=== PATIENT | female | born 1955 | race Caucasian/White ===

== ENCOUNTER → 2020-08-15 15:00 | Outpatient (BNVA) | payer MEDICARE, SELFPAY | PROVIDERS: Family Provider Internal Medicine; Referring Provider Internal Medicine; Visit Provider Nurse Practitioner | DX: G20 Parkinson's disease (principal) | CPT/HCPCS: 99204 ==

== ENCOUNTER 2020-09-17 07:05 | Outpatient (CLI) | payer MEDICARE, SELFPAY ==
--- NOTE | 2020-09-17 07:14 | ECG_ITS ---
[facility] Test Date: 2020-09-17 Pat Name: Janeth Germain Department: Room: Gender: Female [employer] Supervisor: : 1955 Requested By: eWndy Bryant Order Number: [id number] Vesta MD: Wendy Bryant M.D. Interpretive Statements NAME OF STUDY: LEXISCAN SESTAMIBI STRESS TEST INDICATION: CAD PROCEDURE: At the baseline, the blood pressure was 131/79 mmHg, oxygen saturation 98% with a heart rate of 63 bpm. The electrocardiogram showed sinus bradycardia, normal axis with possible old anteroseptal infarct. Nonspecific T wave abnormality. The Lexiscan was infused over a period of 20 seconds. A total of 0.4 milligrams of Lexiscan was infused. The stress phase was continued for a total of 5 minutes. Heart rate at the end of the stress phase was 64 bpm, oxygen saturation 95% with a blood pressure of 121/66 mmHg. The EKG at the peak infusion revealed sinus rhythm with no significant ST-T wave changes. Sestamibi was injected 20 seconds after the Lexiscan infusion. Blood pressure at the end of the recovery phase was 141/80 mmHg, oxygen saturation 95% with a heart rate of 60 beats per minute. CONCLUSION: 1. No significant EKG changes with the LexiScan infusion. 2. No LexiScan induced chest pain or cardiac arrhythmia. 3. Normal blood pressure and heart rate response. 4. Sestamibi/sestamibi perfusion scan pending; see separate report. Electronically Signed On 09-18-2020 12:46:45 CDT by Wendy Bryant M.D. [id number]
--- NOTE | 2020-09-17 07:14 | NMCV_ITS ---
NM kaylee perf SPECT r/s* [id number] Janeth Germain Age: 65 Gender: F : 1955 Exam Date: 09/17/2020 08:20 Ordering Phys: Wendy Bryant MD ([email or web address]) Technologist: LINNETTE Kent Exam Location: [facility] Indications: CAD STRESS TEST Please see separate stress test report in [facility] for full findings IMAGE PROTOCOL Rest/Stress 1 Lexiscan Day Radiopharmaceutical Dose (mCi) Administration Site Administered by Rest: Tc-99m 10.9 IV LINNETTE Kent Sestamibi Stress:Tc-99m 32.9 IV LINNETTE Kent Sestamibi Rest: 17-Sep-2020 60 Discovery 630 Stress: 17-Sep-2020 45 Discovery 630 0.4mg Lexiscan. Images obtained in supine and prone position. SPECT RESULTS Technical Quality: Good Raw Data Analysis: Subdiaphragmatic activity Image Corrections: No attenuation or motion correction applied Summed Stress Score: 2 Summed Rest Score: 10 Summed Difference Score: 0 PERFUSION FINDINGS Medium size perfusion abnormality of basal to mid anterior and basal to mid anteroseptal, apical lateral and apical wall on rest images with improved tracer uptake in anterior anteroseptal wall on stress images. This is suggestive of attenuation artifact. FUNCTIONAL RESULTS (calculated via Gated SPECT) Stress Image LV EF (%): 56 Stress EDV (mL):99 TID: 1.17 Stress ESV (mL):44 FUNCTIONAL FINDINGS: The left ventricle is normal in size. Transient Ischemia Dilatation of 1.2. There is normal left ventricular systolic function. The left ventricular ejection fraction is normal with a value of 56%. Normal end-diastolic and end-systolic volumes. IMPRESSIONS 1. Myocardial perfusion imaging is normal. Attenuation artifact noted in anteroseptal and anterior teresa. 2. Overall left ventricular systolic function is normal without regional wall motion abnormalities. 3. The left ventricular ejection fraction is normal with a value of 56%. 4. Transient Ischemia Dilatation mildly elevated 1.2. This could represent subendocardial ischemia or hypertensive response. 5. No coronary ischemia based on this study. Wendy Bryant MD (Electronically Signed) Final Date: 18 September 2020 12:55 S
--- NOTE | 2020-09-17 07:17 | USCV_ITS ---
Marcellus Janeth Age: 65 Gender: F : 1955 Exam Date: 09/17/2020 07:47 Ordering Phys: Wendy Bryant MD ([email or web address]) Technologist: Mary Beth Dumont Exam Location: [facility] Indication: CHEST PAIN 4 VESSE CABG WITH STENTS BP: / HR: 62 Rhythm: Sinus Technical Quality: Adequate MEASUREMENTS (Male / Female) Normal Values 2D ECHO LV Diastolic Diameter PLAX 5.0 cm 4.2 - 5.9 / 3.9 - 5.3 cm LV Systolic Diameter PLAX 3.7 cm LV Chamber Size 4.0 cm IVS Diastolic Thickness 0.8 cm 0.6 - 1.0 / 0.6 - 0.9 cm IVS Systolic Thickness 1.0 cm LVPW Diastolic Thickness 1.3 cm 0.6 - 1.0 / 0.6 - 0.9 cm LVPW Systolic Thickness 1.1 cm RV Chamber Size 2.8 cm LVOT Diameter 3.0 cm LV Ejection Fraction 2D Teich 51.1 % LV Ejection Fraction MOD 2C 66.5 % LV Ejection Fraction 2C AL 66.0 % LA Diameter 3.6 cm LA Width 3.0 cm LA Height 4.1 cm RA Width 3.0 cm RA Height 3.9 cm Aorta at Sinotubular Diameter 2.0 cm M-MODE LV Diastolic Diameter MM 5.3 cm 4.2 - 5.9 / 3.9 - 5.3 cm LV Systolic Diameter MM 3.5 cm LV Ejection Fraction MM Teich 60.9 % IVS Diastolic Thickness MM 0.6 cm 0.6 - 1.0 / 0.6 - 0.9 cm IVS Systolic Thickness MM 1.3 cm LVPW Diastolic Thickness MM 1.0 cm 0.6 - 1.0 / 0.6 - 0.9 cm LVPW Systolic Thickness MM 1.5 cm RV Diastolic Diameter MM 1.9 cm Aortic Annulus Diameter 3.9 cm LA Ao Ratio MM 0.9 MV E Point Septal Separation 0.9 cm DOPPLER AV Peak Velocity 137.0 cm/s LVOT Peak Velocity 87.0 cm/s AV Area Cont Eq vti 4.7 cm squared AV Area Cont Eq pk 4.6 cm squared MV Area PHT 5.0 cm squared Mitral E to A Ratio 0.9 MV E' Velocity 52.0 cm/s Mitral E to MV E' Ratio 8.8 Mitral E to LV E' Lateral Ratio 9.4 Mitral E to LV E' Septal Ratio 8.4 TR Peak Velocity 151.3 cm/s TR Peak Gradient 9.2 mmHg TR Mean Velocity 112.3 cm/s TR Mean Gradient 5.6 mmHg TR Velocity Time Integral 39.9 cm TV Peak E Velocity 59.0 cm/s Right Atrial Pressure 3.0 mmHg Pulmonary Artery Systolic Pressu 12.2 mmHg PV Peak Velocity 109.3 cm/s RV Acceleration Time 0.1 s RV Ejection Time 0.4 s RV AcT/ET 0.3 FINDINGS Left Ventricle Normal left ventricular cavity size. Normal left ventricular wall thickness. Low normal left ventricular systolic function. Left ventricular ejection fraction is estimated at 50-55%. There is septal hypokinesis. Abnormal (paradoxical) septal motion consistent with postoperative status. Normal diastolic function. Right Ventricle Normal right ventricular size and systolic function, RVSP 12.2 mmHg. Right Atrium Normal right atrial size. Left Atrium Normal left atrial size. Mitral Valve Mildly thickened and calcified mitral valve. There is bowing of both mitral valve leaflets without significant prolapse. No mitral valve stenosis. Trace mitral valve regurgitation. Aortic Valve Aortic valve not well visualized. Probably mildly thickened trileaflet aortic valve. No aortic valve stenosis. No aortic valve regurgitation. Tricuspid Valve Structurally normal tricuspid valve. Trace tricuspid valve regurgitation. Pulmonic Valve Pulmonic valve not well visualized. Pericardium No pericardial effusion. Aorta Normal-sized aortic root. CONCLUSIONS 1. Normal left ventricular cavity size. Normal left ventricular wall thickness. Low normal left ventricular systolic function. Left ventricular ejection fraction is estimated at 50-55%. There is septal hypokinesis. Normal diastolic function. 2. Normal right ventricular size and systolic function, RVSP 12.2 mmHg. 3. There is bowing of both mitral valve leaflets without significant prolapse. 4. No significant valvular abnormality. 5. No prior similar studies to compare. Wendy Bryant MD (Electronically Signed) Final Date: 20 September 2020 12:39 S
[2020-09-17 07:48] VITALS: BMI 34.8
--- NOTE | 2020-09-17 09:45 | PC.NURSE ---
STRESS TEST NOTE THE PATIENT COMES TO ME FROM NUCLEAR MEDICINE. SHE STATES THAT SHE DOES NOT WISH TO DO THE EXERCISE PORTION OF THE STRESS TEST. SHE REQUESTS TO DO THE CHEMICAL. DR MORRIS'S NURSE, CHARLES, WAS NOTIFIED. A VERBAL TELEPHONE ORDER WAS GIVEN TO CHANGE THE EXERCISE TO A LEXISCAN SESTAMIBI STRESS TEST.
[2020-09-17] MEDS: regadenoson 0.4 Mg/5 ml Syringe IVP (10:10)
== END 2020-09-17 07:06 | disposition home or self-care (01) ==
LOC: CDL 07:11
PROVIDERS: PCP Internal Medicine; Visit Provider Internal Medicine Cardiovascular Disease
DX: I25.10 Atherosclerotic heart disease of native coronary artery without angina pectoris (principal); I50.9 Heart failure, unspecified; Z95.1 Presence of aortocoronary bypass graft
CPT/HCPCS: 78452; 93306; A9500; J2785

== ENCOUNTER 2021-01-27 14:45 | Outpatient (CLI) | payer MEDICARE, SELFPAY ==
--- NOTE | 2021-01-27 14:54 | MM_ITS ---
WS: [id number] BILATERAL DIGITAL SCREENING MAMMOGRAPHY WITH CAD CLINICAL INFORMATION: SCREENING HISTORY: Screening mammogram. No current complaints. COMPARISON: 2014 TECHNIQUE: Bilateral CC and MLO views. FINDINGS: Scattered fibroglandular densities bilaterally. No suspicious focal mass, asymmetry, calcifications, or architectural distortion. No evidence of malignancy. A few tiny punctate calcifications. MM/[place] [id number] IMPRESSION: BI-RADS: 2-Benign FOLLOW UP: 1 Year Follow-up Recommend return to annual screening mammography.
== END 2021-01-27 14:46 | disposition home or self-care (01) ==
PROVIDERS: PCP Internal Medicine; Visit Provider Internal Medicine
DX: Z12.31 Encounter for screening mammogram for malignant neoplasm of breast (principal)
CPT/HCPCS: 77067

== ENCOUNTER → 2021-02-27 11:30 | Outpatient (BNVA) | payer MEDICARE, SELFPAY | PROVIDERS: PCP Internal Medicine; Visit Provider Internal Medicine Cardiovascular Disease | DX: I10 Essential (primary) hypertension (principal); I50.9 Heart failure, unspecified; I25.10 Atherosclerotic heart disease of native coronary artery without angina pectoris | CPT/HCPCS: 80053; 83735; 83880; 85025 ==

== ENCOUNTER 2021-04-14 16:57 | Emergency (ER) | payer MEDICARE, SELFPAY ==
[2021-04-14 17:25] VITALS: BP 123/73; PULSE 87; RESP 20; TEMP 37.7; O2SAT 95; BMI 34.7
[2021-04-14 17:54] VITALS: O2SAT 96
--- NOTE | 2021-04-14 18:32 | CTR_ITS ---
PROCEDURE INFORMATION: Exam: CT Maxillofacial With Contrast Exam date and time: 04/14/2021 6:39 PM Age: 66 years old Clinical indication: Fever; Face pain; Additional info: Concern for left maxillar sinus infection 2/2 infected tooth TECHNIQUE: Imaging protocol: Computed tomography images of the face with intravenous contrast. Total images: 278 Radiation optimization: All CT scans at this facility use at least one of these dose optimization techniques: automated exposure control; mA and/or kV adjustment per patient size (includes targeted exams where dose is matched to clinical indication); or iterative reconstruction. Contrast material: OMNI 300; Contrast volume: 95 ml; Contrast route: INTRAVENOUS (IV); COMPARISON: No relevant prior studies available. RADIATION DOSE METRICS: Total DLP (mGy-cm): 784.78 FINDINGS: Orbital cavity: Orbits are normal. Globes are unremarkable. Bones/joints: Degenerative disc disease with degenerative disease and disc space height loss C5/C6 and C6/C7. No visible acute osseous abnormality. No visible facial bone fracture. Paranasal sinuses: Mild chronic ethmoid and right maxillary sinusitis. No visible active paranasal sinus disease. Soft tissues: Unremarkable. Dental: Large dental elda 2nd left mandibular bicuspid. CT/CT facial bones w con [id number] IMPRESSION: 1. Large dental elda 2nd left mandibular bicuspid. 2. Mild chronic ethmoid and right maxillary sinusitis. Radiation Dose CTDIVOL = (mGy): DLP = 784.78 (mGy-cm)
--- NOTE | 2021-04-14 18:32 | XRR_ITS ---
PROCEDURE INFORMATION: Exam: XR Chest Exam date and time: 04/14/2021 6:35 PM Age: 66 years old Clinical indication: Cough and shortness of breath; Prior surgery; Surgery date: 6+ months; Surgery type: Open heart, stents; Additional info: Cough, SOB TECHNIQUE: Imaging protocol: XR of the chest. Views: 1 view. Total images: 1 COMPARISON: No relevant prior studies available. FINDINGS: Lungs: No visible active interstitial or alveolar airspace disease. Pleural spaces: Unremarkable. No pleural effusion. No pneumothorax. Heart/Mediastinum: Cardiac structures and configuration with arteriosclerosis. Status post sternotomy chest and CABG. Bones/joints: Unremarkable. XR/XR chest 1V portable [id number] IMPRESSION: Nonacute.
--- NOTE | 2021-04-14 18:50 | ED_ITS ---
HPI - Fever General: Chief Complaint: Fever Stated Complaint: COUGH, SOB, SORE THROAT Time Seen by Provider: 04/14/21 18:16 History of Present Illness: HPI Narrative: well appearing 66 yr old female seen for cough, congestion, sore throat, subjective fever, left maxillary sinus pain x 2 days, as well as post-tussive emesis. She feels she is dehydrated and not eating enough as a result. She is quite nervous that she might have COVID-19 as people weren't wearing masks aroung her [facility] She denies CP, abd pain, sensation of nausea, dysuria, frequency, but admits cough and post-nasal drip. left maxillary sinus pain is 6/10, and she has a broken tooth on the upper left side. Review of Systems General: Reports: 10 or more systems reviewed and unremarkable except in HPI and below PFSH ED PFSH: Medical History CAD (coronary artery disease) CHF (congestive heart failure) HTN (hypertension) Hyperlipidemia Hypothyroidism Porphyria Transient neurological symptoms Surgical History S/P CABG x 4 Family History Other CAD (coronary artery disease) CHF (congestive heart failure) Family history of premature coronary artery disease Hyperlipidemia Social History Smoking and tobacco status: never smoked Alcohol intake: never Physical Exam Const: COMMON NORMALS: no acute distress, patient oriented x3 and alert GENERAL APPEARANCE: cooperative, comfortable and anxious (mildly) HENMT: COMMON NORMALS: normocephalic and atraumatic HEAD & SCALP: normocephalic and atraumatic Eye: COMMON NORMALS: Equal, round and reactive pupils present, EOMs intact bilaterally and no scleral icterus PUPIL: Yes Equal, round and reactive pupils present Chest: COMMONS NORMALS: normal inspection of the chest and normal palpation of entire chest wall Resp: COMMON NORMALS: normal respiratory effort, No retractions, No use of accessory muscles and clear to auscultation bilaterally EFFORT & INSPECTION: Yes able to speak in complete sentences, Yes symmetric chest movement, No tachypneic, No respiratory distress, No stridor, Yes Actively coughing, No retractions and No uses accessory muscles AUSCULTATION: clear to auscultation bilaterally Cardio: COMMON NORMALS: regular rate, regular rhythm and No murmurs present (Cardio) RATE: regular rate RHYTHM: regular rhythm GI: COMMON NORMALS: Normal to inspection, nondistended, normoactive bowel sounds present, Soft to palpation and non-tender PALPATION: Yes Soft to palpation Neuro: COMMON NORMALS: patient oriented x3 SENSORIUM/ORIENTATION: Yes alert Skin: COMMON NORMALS: no rashes or lesions noted GENERAL SKIN EXAM: no rashes or lesions noted Course Vital Signs: Vital signs: Vital Signs Temperature 99.9 F H 04/14/21 17:25 Pulse Rate 73 04/14/21 19:48 Respiratory Rate 18 04/14/21 19:48 Blood Pressure 126/60 04/14/21 19:48 Pulse Oximetry 96 04/14/21 19:48 MDM - Fever MDM Narrative: Medical decision making narrative: Patient remained hemo dynamically stable throughout ED course. Chest x-ray shows no evidence of pneumonia. Lung sounds are clear. Vital signs are stable. CT of the facial bones does not show evidence of sinusitis or other worrisome findings. I believe she is likely suffering from an upper respiratory viral infection causing her cough and subjective fever. As such, I will advise that she take ibuprofen or Tylenol for symptomatic control as well as [id number]-[id number] antitussive medication she shows good understanding and agrees to the plan, knowing she is always welcome back in the emergency department if her symptoms get worse before patient follow-up. Lab Data: Labs: Lab Results 04/14/21 04/14/21 04/14/21 Range/Units 16:59 16:59 16:59 WBC 4.7 (4.0-10.0) 10^3/ uL RBC 3.93 L (4.1-5.3) 10^6/u L Hgb 12.3 (11.5-15.3) g/dL Hct 37.5 (37.0-47.0) % MCV 95.4 (81-99) fL MCH 31.3 (28.0-34.0) pg MCHC 32.8 (30.0-36.0) g/dL RDW 13.1 (12.1-15.1) % Plt Count 194 (130-400) 10^3/c mm MPV 9.8 (7.4-10.4) fL Neut % (Auto) 69.1 % Lymph % (Auto) 22.0 % [place] % (Auto) 8.3 % Eos % (Auto) 0.4 % Baso % (Auto) 0.0 % Neut # (Auto) 3.23 (1.8-7.7) 10^3/u L Lymph # (Auto) 1.0 (0.8-4.8) 10^3/u L [place] # (Auto) 0.4 (0.2-0.9) 10^3/u L Eos # (Auto) 0.0 (0.0-0.8) 10^3/u L Baso # (Auto) 0.0 (0.0-0.1) 10^3/u L Nucleated RBC % (a uto) 0 % Nucleated RBCs # 0.0 /100WBC Sodium 140 (136-145) mmol/L Potassium 3.8 (3.5-5.1) mmol/L Chloride 104 (98-107) mmol/L Carbon Dioxide 25 (22-29) mmol/L Anion Gap 14.8 (5-19) BUN 6 L (8-23) mg/dL Creatinine 0.7 (0.5-0.9) mg/dL GFR Calculation 84.2 L (90-130) mL/min Glucose 94 (65-115) mg/dL Calculated Osmolal ity 287 (285-295) mOsm/k g Calcium 9.3 (8.5-10.5) mg/dL Total Bilirubin 0.4 (0.15-1.2) mg/dL AST 14 (0-32) U/L ALT 13 (0-33) U/L Alkaline Phosphata se 64 (35-105) IU/L Total Protein 7.2 (6.6-8.7) g/dL Albumin 4.4 (3.5-5.2) g/dL Globulin 2.8 (1.3-4.6) g/dL Urine Color (Yellow) Urine Appearance (CLEAR) Urine pH (5-7) Ur Specific Gravit y (1.005-1.030) Urine Protein (Negative) Urine Glucose (UA) (Normal) Urine Ketones (Negative) Urine Blood (Negative) Urine Nitrate (Negative) Urine Bilirubin (Negative) Urine Urobilinogen (Negative) mg/dL Ur Leukocyte Peggy ase (Negative) SARS-CoV-2 Ag (Rap id) Negative (Negative) 04/14/21 Range/Units 19:33 WBC (4.0-10.0) 10^3/ uL RBC (4.1-5.3) 10^6/u L Hgb (11.5-15.3) g/dL Hct (37.0-47.0) % MCV (81-99) fL MCH (28.0-34.0) pg MCHC (30.0-36.0) g/dL RDW (12.1-15.1) % Plt Count (130-400) 10^3/c mm MPV (7.4-10.4) fL Neut % (Auto) % Lymph % (Auto) % Coll[place]worth % (Auto) % Eos % (Auto) % Baso % (Auto) % Neut # (Auto) (1.8-7.7) 10^3/u L Lymph # (Auto) (0.8-4.8) 10^3/u L Collingsworth # (Auto) (0.2-0.9) 10^3/u L Eos # (Auto) (0.0-0.8) 10^3/u L Baso # (Auto) (0.0-0.1) 10^3/u L Nucleated RBC % (a uto) % Nucleated RBCs # /100WBC Sodium (136-145) mmol/L Potassium (3.5-5.1) mmol/L Chloride (98-107) mmol/L Carbon Dioxide (22-29) mmol/L Anion Gap (5-19) BUN (8-23) mg/dL Creatinine (0.5-0.9) mg/dL GFR Calculation (90-130) mL/min Glucose (65-115) mg/dL Calculated Osmolal ity (285-295) mOsm/k g Calcium (8.5-10.5) mg/dL Total Bilirubin (0.15-1.2) mg/dL AST (0-32) U/L ALT (0-33) U/L Alkaline Phosphata se (35-105) IU/L Total Protein (6.6-8.7) g/dL Albumin (3.5-5.2) g/dL Globulin (1.3-4.6) g/dL Urine Color Yellow (Yellow) Urine Appearance Clear (CLEAR) Urine pH 5 (5-7) Ur Specific Gravit y 1.020 (1.005-1.030) Urine Protein Neg (Negative) Urine Glucose (UA) Norm (Normal) Urine Ketones Negative (Negative) Urine Blood Neg (Negative) Urine Nitrate Negative (Negative) Urine Bilirubin Neg (Negative) Urine Urobilinogen Norm (Negative) mg/dL Ur Leukocyte Peggy ase Negative (Negative) SARS-CoV-2 Ag (Rap id) (Negative) Discharge Plan Discharge Condition: Stable Prescriptions: No Action clopidogrel 75 mg tablet 75 mg PO BEDTIME RF: 0 gabapentin 300 mg capsule See Rx Instructions .ROUTE .COMPLEX RF: 0 bumetanide 0.5 mg tablet 0.5 mg PO DAILY@11 RF: 0 ezetimibe 10 mg tablet 10 mg PO BEDTIME RF: 0 aspirin 325 mg tablet 325 mg PO DAILY RF: 0 magnesium oxide 400 mg magnesium tablet 400 mg PO PRN RF: 0 multivitamin Tablet 1 tab PO DAILY RF: 0 levothyroxine 50 mcg tablet 50 mcg PO QAM RF: 0 Vitamin B-12 1 tab PO PRN RF: 0 Vitamin D3 3 - 4 cap PO DAILY RF: 0 atorvastatin 80 mg tablet 80 mg PO BEDTIME RF: 0 isosorbide dinitrate 5 mg tablet 2.5 mg PO BID RF: 0 Discharge Orders: Discharge ED (Routine); Ordered 04/14/21 Ordered By: Adalberto Almonte Referrals: Heather Rodriguez, [Primary Care Provider] - Discharge Diet: Advance as tolerated Discharge Activity: Resume usual activity Activity Restrictions/Additional Instructions: Your chest x-ray and CT of your facial bones are reassuringly normal. There is no evidence of pneumonia. Your COVID-19 test is negative. You do not have a bacterial sinusitis requiring antibiotics at this time. I suspect her symptoms are viral in nature, however I am not sure which virus it is except that it is not Covid. Please treat yourself symptomatically with Tylenol and ibuprofen as needed for fever. Alkv-emx-taskyjb cough medication may be helpful. Coding Level of Care Code ED Federal Judge for Anayelig Fwd Exam Comprehensive
[2021-04-14 19:12] LABS: Eosinophils % 0.4 %; Hematocrit 37.5 % (37.0-47.0); Hemoglobin 12.3 g/dL (11.5-15.3); Mean Corpuscular HGB Conc 32.8 g/dL (30.0-36.0); Mean Corpuscular Hemoglobin 31.3 pg (28.0-34.0); Mean Corpuscular Volume 95.4 fL (81-99); Mean Platelet Volume 9.8 fL (7.4-10.4); Monocytes # 0.4 10^3/uL (0.2-0.9); Monocytes % 8.3 %; Neutrophils # 3.23 10^3/uL (1.8-7.7); Neutrophils % 69.1 %; Nucleated Red Blood Cells % 0 %; Platelet Count 194 10^3/cmm (130-400); Red Blood Count 3.93 10^6/uL (4.1-5.3); Red Cell Distribution Width 13.1 % (12.1-15.1); White Blood Count 4.7 10^3/uL (4.0-10.0)
[2021-04-14 19:29] LABS: Alanine Aminotransferase 13 U/L (0-33); Albumin Level 4.4 g/dL (3.5-5.2); Alkaline Phosphatase 64 IU/L (35-105); Anion Gap 14.8 (5-19); Aspartate Amino Transferase 14 U/L (0-32); Blood Urea Nitrogen 6 mg/dL (8-23); Calcium 9.3 mg/dL (8.5-10.5); Carbon Dioxide 25 mmol/L (22-29); Chloride 104 mmol/L (98-107); Globulin 2.8 g/dL (1.3-4.6); Glomerular Filtration Rate 84.2 mL/min (90-130); Glucose 94 mg/dL (65-115); Osmolality Calculated 287 mOsm/kg (285-295); Potassium 3.8 mmol/L (3.5-5.1); Sodium 140 mmol/L (136-145); Total Bilirubin 0.4 mg/dL (0.15-1.2); Total Protein 7.2 g/dL (6.6-8.7)
[2021-04-14 19:30] LABS: SARS Covid-2 Antigen Negative (Negative)
[2021-04-14 19:40] LABS: Add Urine Microscopic? NO; Charge for UA Resulting for Rev
[2021-04-14] MEDS: dextrose 50% syringe 50 mL 25 ML IVP (19:43)
[2021-04-14] MEDS: sodium chloride 0.9% 1,000 ML 999 ML IV (19:44)
[2021-04-14 19:48] VITALS: BP 126/60; PULSE 73; RESP 18; O2SAT 96
[2021-04-14 19:57] LABS: Bilirubin Urine Neg (Negative); Blood Urine Neg (Negative); Glucose Urine UA Norm (Normal); Ketones Urine Negative (Negative); Leukocyte Esterase Urine Negative (Negative); Nitrate Urine Negative (Negative); Protein Urine Neg (Negative); Urine Appearance Clear (CLEAR); Urine Color Yellow (Yellow); Urobilinogen Urine Norm (Negative); pH Urine 5 (5-7)
[2021-04-14] MEDS: iohexol 300 mg/mL 100 mL Btl IV (20:01)
[2021-04-14 20:58] VITALS: PULSE 75
[2021-04-14 20:59] VITALS: BP 118/57; PULSE 79; O2SAT 97
== END 2021-04-14 21:01 ==
PROVIDERS: Emergency Provider Student in an Organized Health Care Education/Training Program; PCP Internal Medicine
DX: R05 Cough (principal); R06.02 Shortness of breath; J02.9 Acute pharyngitis, unspecified; R09.82 Postnasal drip; R68.84 Jaw pain; Z20.822 Contact with and (suspected) exposure to COVID-19; E78.5 Hyperlipidemia, unspecified; I11.0 Hypertensive heart disease with heart failure; I50.9 Heart failure, unspecified; I25.10 Atherosclerotic heart disease of native coronary artery without angina pectoris; E03.9 Hypothyroidism, unspecified; Z79.02 Long term (current) use of antithrombotics/antiplatelets; Z79.82 Long term (current) use of aspirin; Z95.1 Presence of aortocoronary bypass graft
CPT/HCPCS: 70487; 71045; 80053; 81003; 85025; 87426; 96361; 96374; 99284; J7030; Q9967

== ENCOUNTER 2021-05-06 20:00 | Outpatient (CLI) | payer MEDICARE, SELFPAY | END 2021-05-06 20:01 | disposition home or self-care (01) | LOC: SLEEP 05-07 14:42 | PROVIDERS: PCP Internal Medicine; Visit Provider Internal Medicine | DX: G47.33 Obstructive sleep apnea (adult) (pediatric) (principal) | CPT/HCPCS: 95810 ==